=== PATIENT | female | born 1980 | race Caucasian/White ===

== ENCOUNTER 2017-11-04 08:48 | Emergency (ER) | payer MEDICAID ==
[2014-07-19 16:05] VITALS: Ht 162.6 cm; Wt 107.5 kg
[~2017-11-04] VITALS: Ht 162.6 cm; Wt 107.5 kg
[~2017-11-04 08:48] MED LIST: ACET-1718 PO; ALBU8.5H12 IH; AMOX500T10 PO; ARIP20TA11 PO; ATOM100C2 PO; BACDS PO; CALC-475 PO; CEF300 PO; CETI-169; CITA-157 PO; CYC10 PO; CYCL-277 PO; CYCL-332 PO; DIA5 PO; ESC10 PO; GABA-549 PO; HYDR-3074 PO; HYDR-3078 PO; HYDR-4225 PO; IBU600 PO; IBU800 PO; IBUP800T37 PO; KET10 PO; LAMO100T56 PO; LIDO5CRE10 TP; LISD30PT PO; LISD40PT PO; LOR5 PO; LOR5/325 PO; MECL-111 PO; MELO7.5O3 PO; METH-543 PO; METH4TAB66 PO; OXYC-373 PO; OXYC-865 PO; OXYC-870 PO; PER PO; PIRO-91 PO; PRE10 PO; PRED20TA6 PO; PRO25 PO; TIZA2CAP3 PO; TIZA4CAP3 PO; TRA50 PO; TRAM-420 PO; U
--- NOTE | 2017-11-04 08:51 | ER Report ---
History and Physical Time Seen By MD: 08:50 HPI/ROS CC: Posterior chest wall pain HPI: 37-year-old female with a past medical history of chronic back pain, medication refill, amphetamine abuse, radicular low back pain, cervical paraspinal muscle spasms. Patient states that yesterday she felt a pop in her posterior right thoracic area. Since that time she's had continued pain with inspiration showed stabbing in nature that she is rating as an 8-9 out of 10. Reproducible with deep breathing. Better with rest. She states that it takes her breath away. She continues to smoke over a pack of cigarettes a day. She's been battling a sinus infection for a week. She denies any chest pressure, nausea vomiting, diaphoresis or shortness of breath, palpitations abdominal pain. ROS: 12 point review of systems essentially negative other than what's mentioned in history of present illness. NURSES AND OLD MEDICAL RECORDS: Reviewed PMH: Reviewed SURGICAL HX: Reviewed FAMILY HX: Noncontributory SOCIAL HX: Patient continues to smoke a pack of cigarettes a day. History of illegal drug use. VITAL SIGNS: Reviewed CONSTITUTIONAL: 37-year-old female in moderate distress. PHYSICAL EXAM: HEENT: Pupils equal round reactive to light and accommodate, EOMI, tympanic membranes pearly white umbo present with good light reflex. Lips dry mucous membranes moist gums nonbleeding uvula midline and rises equally with phonation, oropharynx noninjected, teeth intact. NECK: Neck supple, thyroid not appreciated, anterior and posterior cervical lymphadenopathy not appreciated. Trachea midline and rises equally with phonation. CARDIAC: S1-S2 regular rate rhythm no murmurs rubs or gallops. LUNGS: Lungs clear bilaterally posteriorly in all lechuga. Good air movement. ABDOMEN: Abdomen soft, nondistended, bowel sounds active in all 4 quadrants, no bruits noted, no CVA tenderness. MUSCULOSKELETAL: Strength 5 out of 5 x 4 extremities, no deformities noted. NEUROLOGIC: Patient alert and oriented by 3 Allergies: Coded Allergies: No Known Drug Allergies (Verified , 11/04/17) Home Meds Reported Medications Lamotrigine (LAMICTAL) 100 Mg Tablet, 100 MG PO HS 03/26/17 Gabapentin (GABAPENTIN) 300 Mg Capsule, 800 MG PO QID for PAIN, CAPSULE 10/01/15 Atomoxetine Hcl (STRATTERA) 100 Mg Capsule, 100 MG PO QDAY, #10 CAP 10/01/15 Hydroxyzine Hcl (HYDROXYZINE HCL) 25 Mg Tablet, 50 MG PO BID 05/20/15 Citalopram Hydrobromide (CELEXA) 40 Mg Tablet, 40 MG PO QDAY, #5 TAB 05/20/15 Albuterol Sulfate (Albuterol Sulfate Hfa) 8.5 Gm Hfa.aer.ad, 8.5 GM IH PRN, 0 Refills 03/26/11 Discontinued Reported Medications Cetirizine Hcl (CETIRIZINE HCL) 10 Mg Tablet 08/18/17 Meloxicam (MELOXICAM) 7.5 Mg/5 Ml Oral.susp, 7.5 MG PO BID 02/15/16 Discontinued Scripts Diazepam (VALIUM) 5 Mg Tablet, 5 MG PO 2-3XD, #15 TAB Prov:ELIZABETH MCKEON MD 08/22/17 Oxycodone Hcl/Acetaminophen (PERCOCET 5-325 MG TABLET) 1 Each Tablet, 1 EACH PO Q4-6H Y for PAIN, #12 Prov:RICARDO GOODEN DO 08/18/17 Methocarbamol (ROBAXIN-750) 750 Mg Tablet, 1 MG PO TID Y for muscle spasm relief , #15 Prov:RICARDO GOODEN DO 08/18/17 Hx Smoking: Yes (2 PPD) Smoking Status: Current: Every Day Smoker Exposure to Second Hand Smoke?: No Hx Substance Use Disorder: Yes (METH, COCAINE QUIT DEC 30, 2016) Hx Alcohol Use: Yes (ETOH LAST DRINK OCT 2016) Constitutional Vital Sign - Last 24 Hours 11/04/17 11/04/17 11/04/17 11/04/17 08:52 09:00 09:00 09:09 Temp 98.1 Pulse 94 77 78 Resp B/P (MAP) 125/72 Pulse Ox 96 92 O2 Delivery Room Air Room Air Medical Decision Making Data Points Result Diagram: 11/04/1792011/04/17920 Laboratory Hematology Test 11/04/17 08:52 11/04/17 09:14 11/04/17 09:21 Urine Opiates Screen Negative Urine Barbiturates Screen Negative Ur Tricyclic Antidepressants Screen Negative Urine Phencyclidine Screen Negative Urine Amphetamines Screen Negative Urine Benzodiazepines Screen Negative Urine Cocaine Screen Negative Urine Cannabinoids Screen Negative Urine Color Straw Urine Clarity Clear Urine pH 7.0 pH (4.8-9.5) Urine Specific Diana 1.005 Urine Protein Negative mg/dL (NEGATIVE) Urine Glucose (UA) Negative mg/dL (NEGATIVE) Urine Ketones Negative mg/dL (NEGATIVE) Urine Blood Negative (NEGATIVE) Urine Nitrite Negative (NEGATIVE) Urine Bilirubin Negative (NEGATIVE) Urine Urobilinogen Negative mg/dL (0.2-1.9) Urine Leukocyte Esterase Negative (NEGATIVE) Urine RBC None /HPF (0-2/HPF) Urine WBC <1 /HPF (0-5/HPF) Urine Squamous Epithelial Cells Many /LPF (</=FEW) Urine Bacteria Few /HPF (NONE-FEW) Urine Mucus None /HPF (NONE-FEW) Red Blood Count 4.99 M/uL (4.17-5.56) Mean Corpuscular Volume 87.4 fL (80.0-96.0) Mean Corpuscular Hemoglobin 29.4 pg (26.0-33.0) Mean Corpuscular Hemoglobin Concent 33.6 g/dL (32.0-36.0) Red Cell Distribution Width 13.7 % (11.5-14.5) Mean Platelet Volume 8.4 fL (7.2-11.1) Neutrophils (%) (Auto) 54.9 % (39.4-72.5) Lymphocytes (%) (Auto) 34.5 % (17.6-49.6) Monocytes (%) (Auto) 6.5 % (4.1-12.4) Eosinophils (%) (Auto) 3.1 % (0.4-6.7) Basophils (%) (Auto) 1.0 % (0.3-1.4) Nucleated RBC Relative Count (auto) 0.0 /100WBC Neutrophils # (Auto) 4.2 K/uL (2.0-7.4) Lymphocytes # (Auto) 2.6 K/uL (1.3-3.6) Monocytes # (Auto) 0.5 K/uL (0.3-1.0) Eosinophils # (Auto) 0.2 K/uL (0.0-0.5) Basophils # (Auto) 0.1 K/uL (0.0-0.1) Nucleated RBC Absolute Count (auto) 0.00 K/uL Sodium Level 137 mmol/L (137-145) Potassium Level 4.3 mmol/L (3.5-5.0) Chloride Level 105 mmol/L (98-107) Carbon Dioxide Level 24 mmol/L (22-31) Blood Urea Nitrogen 10 mg/dl (7-18) Creatinine 0.80 mg/dl (0.52-1.04) Glomerular Filtration Rate Calc > 60.0 Random Glucose 86 mg/dl (75-110) Calcium Level 8.8 mg/dl (8.4-10.2) Total Bilirubin 0.5 mg/dl (0.2-1.3) Aspartate Amino Transf (AST/SGOT) 22 U/L (0-35) Alanine Aminotransferase (ALT/SGPT) 28 U/L (0-56) Alkaline Phosphatase 115 U/L (0-126) Total Protein 6.5 gm/dl (6.3-8.2) Albumin 3.5 g/dl (3.5-5.0) Human Chorionic Gonadotropin, Qual Negative (NEGATIVE) Chemistry Test 11/04/17 08:52 11/04/17 09:14 11/04/17 09:21 Urine Opiates Screen Negative Urine Barbiturates Screen Negative Ur Tricyclic Antidepressants Screen Negative Urine Phencyclidine Screen Negative Urine Amphetamines Screen Negative Urine Benzodiazepines Screen Negative Urine Cocaine Screen Negative Urine Cannabinoids Screen Negative Urine Color Straw Urine Clarity Clear Urine pH 7.0 pH (4.8-9.5) Urine Specific Diana 1.005 Urine Protein Negative mg/dL (NEGATIVE) Urine Glucose (UA) Negative mg/dL (NEGATIVE) Urine Ketones Negative mg/dL (NEGATIVE) Urine Blood Negative (NEGATIVE) Urine Nitrite Negative (NEGATIVE) Urine Bilirubin Negative (NEGATIVE) Urine Urobilinogen Negative mg/dL (0.2-1.9) Urine Leukocyte Esterase Negative (NEGATIVE) Urine RBC None /HPF (0-2/HPF) Urine WBC <1 /HPF (0-5/HPF) Urine Squamous Epithelial Cells Many /LPF (</=FEW) Urine Bacteria Few /HPF (NONE-FEW) Urine Mucus None /HPF (NONE-FEW) White Blood Count 7.6 k/uL (4.5-11.0) Red Blood Count 4.99 M/uL (4.17-5.56) Hemoglobin 14.7 g/dL (12.0-16.0) Hematocrit 43.6 % (34.0-47.0) Mean Corpuscular Volume 87.4 fL (80.0-96.0) Mean Corpuscular Hemoglobin 29.4 pg (26.0-33.0) Mean Corpuscular Hemoglobin Concent 33.6 g/dL (32.0-36.0) Red Cell Distribution Width 13.7 % (11.5-14.5) Platelet Count 223 K/uL (150-450) Mean Platelet Volume 8.4 fL (7.2-11.1) Neutrophils (%) (Auto) 54.9 % (39.4-72.5) Lymphocytes (%) (Auto) 34.5 % (17.6-49.6) Monocytes (%) (Auto) 6.5 % (4.1-12.4) Eosinophils (%) (Auto) 3.1 % (0.4-6.7) Basophils (%) (Auto) 1.0 % (0.3-1.4) Nucleated RBC Relative Count (auto) 0.0 /100WBC Neutrophils # (Auto) 4.2 K/uL (2.0-7.4) Lymphocytes # (Auto) 2.6 K/uL (1.3-3.6) Monocytes # (Auto) 0.5 K/uL (0.3-1.0) Eosinophils # (Auto) 0.2 K/uL (0.0-0.5) Basophils # (Auto) 0.1 K/uL (0.0-0.1) Nucleated RBC Absolute Count (auto) 0.00 K/uL Glomerular Filtration Rate Calc > 60.0 Calcium Level 8.8 mg/dl (8.4-10.2) Total Bilirubin 0.5 mg/dl (0.2-1.3) Aspartate Amino Transf (AST/SGOT) 22 U/L (0-35) Alanine Aminotransferase (ALT/SGPT) 28 U/L (0-56) Alkaline Phosphatase 115 U/L (0-126) Total Protein 6.5 gm/dl (6.3-8.2) Albumin 3.5 g/dl (3.5-5.0) Human Chorionic Gonadotropin, Qual Negative (NEGATIVE) Toxicology Test 11/04/17 08:52 Urine Opiates Screen Negative Urine Barbiturates Screen Negative Ur Tricyclic Antidepressants Screen Negative Urine Phencyclidine Screen Negative Urine Amphetamines Screen Negative Urine Benzodiazepines Screen Negative Urine Cocaine Screen Negative Urine Cannabinoids Screen Negative Urinalysis Test 11/04/17 09:14 Urine Color Straw Urine Clarity Clear Urine pH 7.0 pH (4.8-9.5) Urine Specific Diana 1.005 Urine Protein Negative mg/dL (NEGATIVE) Urine Glucose (UA) Negative mg/dL (NEGATIVE) Urine Ketones Negative mg/dL (NEGATIVE) Urine Blood Negative (NEGATIVE) Urine Nitrite Negative (NEGATIVE) Urine Bilirubin Negative (NEGATIVE) Urine Urobilinogen Negative mg/dL (0.2-1.9) Urine Leukocyte Esterase Negative (NEGATIVE) Urine RBC None /HPF (0-2/HPF) Urine WBC <1 /HPF (0-5/HPF) Urine Squamous Epithelial Cells Many /LPF (</=FEW) Urine Bacteria Few /HPF (NONE-FEW) Urine Mucus None /HPF (NONE-FEW) EKG/Imaging Imaging Rib x-ray: IMPRESSION: 1. No radiographic evidence of acute right rib fracture Chest x-ray: IMPRESSION: 1. No acute cardiac pulmonary process is seen ED Course/Re-evaluation ED Course All labs and x-rays are within normal limits. This is most likely chest wall pain. Ibuprofen for pain control. Patient will plan and in agreement. Re-evaluation Medical decision making includes but not excluded to displaced rib, rib fracture , costochondritis, chest wall pain. Decision to Disposition Date: Nov 04, 2017 Decision to Disposition Time: 10:35 Depart Departure Latest Vital Signs Vital Signs Date Time Temp Pulse Resp B/P (MAP) Pulse Ox O2 Delivery O2 Flow Rate FiO2 11/04/17 09:09 78 18 11/04/17 09:00 92 Room Air 11/04/17 08:52 98.1 125/72 Impression: Primary Impression: Chest wall pain Condition: Condition Unchanged Disposition: HOME OR SELF-CARE New Scripts Naproxen Sodium (ALEVE) 220 Mg Capsule 220 MG PO TID Y for PAIN, #60 CAPSULE Prov: LOUISE PASTOR MD 11/04/17 Patient Instructions: Chest Wall Pain (ED) Additional Instructions: You have chest wall pain. Take naproxen as directed. Your x-rays did not show broken rib. You do not have any infiltrates or pneumonia per chest x-ray. Follow -up with your regular physician. I and the staff wanted to thank you for allowing us to take care of your needs today in the emergency department at [facility]. We have tried to answer all of your questions and concerns. Please feel free to return to the emergency department for any further concerns or unanswered questions. LOUISE PASTOR MD Nov 04, 2017 08:51
[2017-11-04] MEDS ORDERED: DEXAMETHASONE 4 MG TAB PO ONE (08:55)
[2017-11-04] MEDS ORDERED: ALBUTEROL/IPRATROPIUM 3 ML NEB NEB ONE (08:55)
[2017-11-04 09:33] LABS: PLATELET COUNT, AUTOMATED 223 K/uL (150-450)
--- NOTE | 2017-11-04 10:01 | RADIOLOGY IMAGING REPORT ---
FACILITY: [facility] - [place] PATIENT NAME: Helen Albarran : 1980 MR: [id number] V: [id number] EXAM DATE: ORDERING PHYSICIAN: LOUISE PASTOR TECHNOLOGIST: [place] [facility] [place] Al[place] : 1980 Visit/Account:[id number] Date of Sevice: 11/04/2017 Exam type: CHEST PA AND LAT History: right posterior pain t 5-7 Comparison: February 03, 2011 Findings: The lungs are free of acute effusions infiltrates or edema. There is no evidence of a pneumothorax o r pneumomediastinum. Cardiac silhouette is normal in size. There is a wavy contour to the upper rib s bilaterally likely related to old fractures.. IMPRESSION: 1. No acute cardiac pulmonary process is seen Report Dictated By: Antonina Armenta MD at 11/04/2017 9:52 AM Report E-Signed By: Antonina Armenta MD at 11/04/2017 9:55 AM WSN:[email or web address]
--- NOTE | 2017-11-04 10:15 | RADIOLOGY IMAGING REPORT ---
FACILITY: [facility] PATIENT NAME: Helen Albarran : 1980 MR: [id number] V: [id number] EXAM DATE: ORDERING PHYSICIAN: LOUISE PASTOR TECHNOLOGIST: Location: [facility] [place] Patient: Helen Albarran : 1980 Visit/Account:[id number] Date of Sevice: 11/04/2017 Exam type: RIBS RIGHT History: right posterior pain t 5-7 Comparison: PA and lateral chest February 03, 2011. Findings: Two views of the right ribs reveals no evidence of acute right rib fracture. No evidence of a pneumo thorax or pleural effusion. IMPRESSION: 1. No radiographic evidence of acute right rib fracture Report Dictated By: Antonina Armenta MD at 11/04/2017 9:55 AM Report E-Signed By: Antonina Armenta MD at 11/04/2017 10:11 AM WSN:[email or web address]
[2017-11-04] MEDS ORDERED: NAPR220C12 PO (10:37)
[2017-11-04 10:41] VITALS: BP 106/74
== END 2017-11-04 10:41 | disposition home or self-care (01) ==
LOC: ER 08:48
DX: R07.89 Other chest pain (principal)
CPT/HCPCS: 36415; 71046; 71100; 80305; 81001; 84703; 85025; 94640; 99283; J7620; J8540; 82040; 82247; 82310; 82374; 82435; 82565; 82947; 84075; 84132; 84155; 84295; 84450; 84460; 84520

== ENCOUNTER → 2017-12-28 | Outpatient (CLI) | payer MEDICAID ==
[2014-07-19 16:05] VITALS: BMI 41.1
[~2017-12-28] MED LIST changes: +NAPR220C12 PO
--- NOTE | 2017-12-28 10:25 | EKG ---
FACILITY: [facility] PATIENT NAME: CECE MCDANIELS : [id number] MR: [id number] V: [id number] EXAM DATE: ORDERING PHYSICIAN: KEL CERVANTES TECHNOLOGIST: RONNI Quiroz Reason : PREOP-SPINE Blood Pressure : / mmHG Vent. Rate : 078 BPM Atrial Rate : 078 BPM P-R Int : 152 ms QRS Dur : 082 ms QT Int : 428 ms P-R-T Axes : 070 044 060 degrees QTc Int : 487 ms Sinus rhythm Probable left atrial enlargement Prolonged QT Abnormal ECG Confirmed by DAISY MAGANA ([id number]) on 12/28/2017 7:33:54 PM Referred By: BILLY Confirmed By:DAISY MAGANA
== END ==
LOC: RESP 10:03
PROVIDERS: ATTEND Orthopaedic Surgery
DX: Z01.812 Encounter for preprocedural laboratory examination (principal); Z01.810 Encounter for preprocedural cardiovascular examination; M50.222 Other cervical disc displacement at C5-C6 level; J45.909 Unspecified asthma, uncomplicated; F32.9 Major depressive disorder, single episode, unspecified; F17.210 Nicotine dependence, cigarettes, uncomplicated; F41.9 Anxiety disorder, unspecified; F90.9 Attention-deficit hyperactivity disorder, unspecified type; F43.10 Post-traumatic stress disorder, unspecified; R94.31 Abnormal electrocardiogram [ECG] [EKG]
CPT/HCPCS: 36415; 82040; 82247; 82310; 82374; 82435; 82565; 82947; 84075; 84132; 84155; 84295; 84450; 84460; 84520; 93005

== ENCOUNTER → 2018-01-24 | Outpatient (CLI) | payer MEDICAID ==
[2014-07-19 16:05] VITALS: BMI 41.1
[~2018-01-24] MED LIST changes: +VENL75CA58 PO
== END ==
LOC: LAB 17:07
PROVIDERS: ATTEND Physician Assistant
DX: Z01.812 Encounter for preprocedural laboratory examination (principal); Z01.810 Encounter for preprocedural cardiovascular examination; M50.222 Other cervical disc displacement at C5-C6 level; J45.909 Unspecified asthma, uncomplicated; F17.210 Nicotine dependence, cigarettes, uncomplicated; F32.9 Major depressive disorder, single episode, unspecified; F41.9 Anxiety disorder, unspecified; F90.9 Attention-deficit hyperactivity disorder, unspecified type; F43.10 Post-traumatic stress disorder, unspecified
CPT/HCPCS: 36415; 82040; 82247; 82310; 82374; 82435; 82565; 82947; 84075; 84132; 84155; 84295; 84450; 84460; 84520

== ENCOUNTER 2018-01-25 02:01 | Observation (INO) | payer MEDICAID, OTHER ==
[2014-07-19 16:05] VITALS: Ht 167.6 cm; Wt 110.7 kg
[2018-01-25] VITALS (13 sets, daily range): BP systolic 92–143; BP diastolic 57–102
[~2018-01-25] VITALS: Ht 167.6 cm; Wt 110.7 kg
[2018-01-25] MEDS ORDERED: LIDOCAINE/SOD BICARB 8.4% SYR ID ONE (06:00)
[2018-01-25] MEDS ORDERED: FAMOTIDINE 20 MG TAB PO ONE (06:00)
[2018-01-25] MEDS ORDERED: MIDAZOLAM 2 MG/2 ML VIAL IVP PRN (06:00)
[2018-01-25] MEDS ORDERED: NORMOSOL R SOLN(*) 1000 ML BAG 1,000 ML IV PRN (06:00)
[2018-01-25] MEDS ORDERED: ceFAZolin(*) 2GM/D5W 50ML 50 ML IVPB ONE (06:00)
[2018-01-25] MEDS ORDERED: THROMBIN (BOVINE) 20,000 UNIT VIAL ONE (06:34)
[2018-01-25] MEDS ORDERED: fentaNYL CITR 250 MCG/5 ML AMP ONE ×2 (06:44→07:12)
[2018-01-25] MEDS ORDERED: PROPOFOL EMUL(*) 10MG/ML 20 ML 80 ML ONE (06:49)
[2018-01-25] MEDS ORDERED: LIDOCAINE 2% IV 100 MG/5ML SYR ONE (06:54)
[2018-01-25] MEDS ORDERED: SUCCINYLCHOL CHL 200MG/10ML VL ONE (07:00)
[2018-01-25] MEDS ORDERED: DEXAMETHASONE SOD PHOS 10MG/ML ONE (07:23)
[2018-01-25] MEDS ORDERED: ONDANSETRON 4 MG/2 ML VIAL ONE (07:23)
[2018-01-25] MEDS ORDERED: PROPOFOL EMUL(*) 10MG/ML 20 ML 60 ML ONE ×2 (07:28→07:57)
[2018-01-25] MEDS ORDERED: MAGNESIUM HYDROXIDE* 30ML UDCP PO PRN (09:15)
[2018-01-25] MEDS ORDERED: ACETAMINOPHEN 500 MG TAB PO PRN (09:15)
[2018-01-25] MEDS ORDERED: ACETAMINOPHEN(*)1000 MG/100 ML 100 ML IVPB PRN (09:15)
[2018-01-25] MEDS ORDERED: ONDANSETRON 4 MG/2 ML VIAL IVP PRN (09:15)
[2018-01-25] MEDS ORDERED: BENZOCAINE/MENTHOL 1 EACH LOZG PO PRN (09:15)
[2018-01-25] MEDS ORDERED: HYDROmorphone HCL 2 MG/ML SDV IVP PRN (09:15)
[2018-01-25] MEDS ORDERED: BISACODYL 10 MG SUPP PR PRN (09:15)
[2018-01-25] MEDS ORDERED: LR(*) 1000 ML BAG 1,000 ML IV PRN (09:15)
[2018-01-25] MEDS ORDERED: FLUSH 10 ML SYR IVP PRN (09:15)
[2018-01-25] MEDS ORDERED: DIAZEPAM 5 MG TAB PO PRN (09:15)
[2018-01-25] MEDS ORDERED: diphenhydrAMINE 25 MG CAP PO PRN (09:15)
[2018-01-25] MEDS ORDERED: fentaNYL CITR 100 MCG/2 ML AMP ONE (09:39)
--- NOTE | 2018-01-25 09:50 | OPERATIVE REPORT 1 ---
EVENT DATE: January 25, 2018 SURGEON: Severino Lundy MD ANESTHESIOLOGIST: Cabrera Conway MD ANESTHESIA: General endotracheal EMS EDUCATOR: Prabhakar Ortiz PA-C PREOPERATIVE DIAGNOSIS Left C6 radiculopathy with C5-C6 herniated nucleus pulposus. POSTOPERATIVE DIAGNOSIS Left C6 radiculopathy with C5-C6 herniated nucleus pulposus. PROCEDURE PERFORMED C5-C6 anterior cervical discectomy and fusion. IV FLUIDS 800 mL. ESTIMATED BLOOD LOSS 25 mL. IMPLANTS An 8 mm tall size medium lordotic interbody device from [employer], 3.5 mm x 14 mm fixation screws also from [employer] x 2 and a 1 mL Vi-Bone bone graft. SPECIMENS None. DRAINS A 10 Bulgarian round Harsha-Lee drain. COMPLICATIONS None. DISPOSITION Post anesthesia care unit. INDICATIONS FOR SURGERY Ms. Albarran is a 37-year-old female who presented to my clinic with a chief complaint of severe radiating left upper extremity pain, numbness and tingling. The pain went into the left periscapular region, then down the biceps, radial forearm, then to the thumb and index finger of the left hand. Physical examination revealed weakness in the left biceps as well as a decreased biceps deep tendon reflex compared to the contralateral side. Her MRI showed a very large left-sided disk herniation significantly compromising the foramen at that level. She failed physical therapy, medications and activity modifications and was ultimately offered surgical intervention in the form of C5-C6 anterior cervical discectomy and fusion. Prior to surgery, I explained in detail to the patient the possible risks of surgery. This included the risks of bleeding, infection, damage to surrounding structures, swallowing difficulties, hoarseness, damage to the superior or the recurrent laryngeal nerve root with possible need for tube feeding, persistent and/or worsening pain, nerve root damage, spinal cord injury, , blindness , sexual dysfunction, and other unforeseen medical and surgical complications. An understanding that spinal surgery is more predictive at relieving extremity discomfort than axial spine pain was stressed. Prior to surgery, we also discussed the value of neurophysiologic monitoring. I explained that neurophysiologic monitoring mitigates against neurologic damage , but is not an infallible mode to prevent this from occurring. Occasionally, the ability to monitor the nerve roots and spinal cord is lost in the absence of a correctable maneuver. In this situation, the surgeon is blinded to any adverse changes to the neurologic system. Patient has given permission to continue surgery in the event that this would occur. Throughout the procedure, there were no significant changes in neurophysiologic monitoring. DESCRIPTION OF PROCEDURE On the day of surgery, the patient was met in the preoperative hold area and all questions were answered. The operative site was identified and marked by myself. The patient was brought in good condition to the operating room, and after succumbing to anesthesia, was positioned in the supine position on a standard OR bed. The arms were tucked at the side with the elbows wrapped in gel pads to protect the ulnar nerves. All bony protuberances and soft tissues were well padded in the standard fashion. The shoulders were retracted inferiorly to afford access to the anterior cervical spine. Care was taken to maintain appropriate perfusion pressures during anesthesia. Preoperatively, antibiotics were administered according to the appropriate timing schedule. At the conclusion of the procedure, sponge and instrument counts were correct x 2. Final time out was undertaken by members of the operating team to confirm correct patient, correct levels and correct surgery. A transverse incision was made over the left side of the anterior cervical spine at the intended surgical levels. Sharp dissection was carried down to the platysma, which was divided with electrocautery. The medial border of the sternocleidomastoid muscle was identified, and the carotid sheath was identified as well. Blunt finger dissection was carried out medial to the carotid sheath and the sternocleidomastoid muscle to come down into the retropharyngeal space. Soft tissues were cleared from the anterior cervical spine, including the longus colli muscles, and the lateral radiograph was taken to confirm correct levels. A self retaining retractor was then placed, and the microscope was brought into the field. A 15 blade was used to incise the outer annulus of the C5-C6 disk. This was removed using pituitary rongeur. Progressively smaller curettes were used to perform a discectomy at the C5-C6 level. Once we began to approach the posterior aspect of the disk space, a Cloward linseed oil refiner was placed and distraction applied across the disk space to afford access to the posterior portion of the disk. There were no changes in neurophysiologic monitoring. Curettes were used to remove the remaining disk fragments from the posterior aspect of the disk space. A very large loose disk fragment was removed from the left side of the canal and the left C5-C6 foramen. The posterior longitudinal ligament was identified, and we dissected through its layers using small angled forward angled curette. Once this was accomplished, the posterior longitudinal ligament was taken down with a #1 and #2 mm Kerrison rongeur. A nerve hook was passed behind the vertebral bodies to ensure complete decompression of the spinal cord, and out bilateral foramina, taking care especially to check the left side for any further loose disk fragments. None were encountered, and bilateral foraminotomies were performed to ensure complete decompression of both nerve roots. First a #7 and then a #8 rasp of the same footprint as the intended implant was placed in the inner space. The 8 mm lordotic rasp was found to fit the best. The end plates were completely stripped of all cartilaginous remnants, ensuring bleeding bone across both surfaces. The 8 mm size medium lordotic interbody device was chosen and packed with Vi-Bone. This was then placed in the interspace, and countersunk about a half a millimeter. The awl was then used to puncture the end plates through the holes in the implant, and 3.5 mm x 14 mm screws were then placed, one into the C5 vertebral body and one into the C6 vertebral body. There were no changes in neurophysiologic monitoring, and a final motor was run again with no changes in neurophysiologic monitoring. Meticulous hemostasis was obtained, and the wound was then closed in layers, using interrupted sutures for the platysma, inverted interrupted sutures for the subcutaneous tissue and then a running subcuticular skin stitch. A lateral radiograph confirmed appropriate positioning of the interbody implant. A 10 Bulgarian round Harsha-Lee drain was left deep to the platysma. Sponge and needle counts were correct x 2. POSTOPERATIVE CARE PLAN The patient will remain in hospital overnight. She will mobilize today and in the morning, and will be discharged home postop day 1. She will follow up in my clinic in two weeks' time for wound check and examination. YONI
[2018-01-25] MEDS ORDERED: ALBUTEROL SULFATE 90 MCG/ACT 8.5 GM HNH INH PRN (11:50)
--- NOTE | 2018-01-25 12:02 | Hospitalist Consultation ---
History of Present Illness Requesting Physician Dr. Lundy Reason for Consult Medication Management Chief Complaint s/p cervical spine surgery History of Present Illness She was admitted s/p cervical spine surgery. It is reported the surgery had no known complications. History Problems: (1) ADHD Status: Chronic (2) Asthma Status: Chronic (3) Depression Status: Chronic (4) Chronic radicular pain of lower back Status: Chronic Home Meds Reported Medications Venlafaxine Hcl (EFFEXOR XR) 75 Mg Cap.er.24h, 75 MG PO QDAY 01/18/18 Lamotrigine (LAMICTAL) 100 Mg Tablet, 100 MG PO HS 03/26/17 Gabapentin (GABAPENTIN) 300 Mg Capsule, 800 MG PO QID for PAIN, CAPSULE 10/01/15 Atomoxetine Hcl (STRATTERA) 100 Mg Capsule, 100 MG PO QDAY, #10 CAP 10/01/15 Hydroxyzine Hcl (HYDROXYZINE HCL) 25 Mg Tablet, 50 MG PO BID 05/20/15 Albuterol Sulfate (Albuterol Sulfate Hfa) 8.5 Gm Hfa.aer.ad, 8.5 GM IH PRN, 0 Refills 03/26/11 Discontinued Reported Medications Citalopram Hydrobromide (CELEXA) 40 Mg Tablet, 40 MG PO QDAY, #5 TAB 05/20/15 Discontinued Scripts Naproxen Sodium (ALEVE) 220 Mg Capsule, 220 MG PO TID Y for PAIN, #60 CAPSULE Prov:LOUISE PASTOR MD 11/04/17 Allergies: Coded Allergies: No Known Drug Allergies (Verified , 11/04/17) Patient History: FH: HTN (hypertension) FATHER MOTHER FH: NE (myocardial infarction) FATHER FH: type 2 diabetes MOTHER Hx Smoking: Yes (5-6 CIGS DAILY) Smoking Status: Never Smoker, Current: Every Day Smoker Exposure to Second Hand Smoke?: No Hx Alcohol Use: Yes (ETOH LAST DRINK OCT 2013) Hx Substance Use Disorder: Yes (METH, COCAINE QUIT DEC 30, 2016) Amount Of Social Drug/s Used: UNSURE HOW MUCH History of IV Drug Use: No Review of Systems All Systems Reviewed/Normal: Yes, Except as Noted Exam Vital Signs Vital Signs Date Time Temp Pulse Resp B/P (MAP) Pulse Ox O2 Delivery O2 Flow Rate FiO2 01/25/18 11:00 89 129/92 (104) 92 01/25/18 10:07 Nasal Cannula 3.0 01/25/18 09:59 98.1 20 General Appearance: Alert, Awake, No Acute Distress, Afebrile Cardiovascular: Regular Rate and Rhythm Respiratory: No Respiratory Distress, Clear to Auscultation Psych: Alert & Oriented X3, Appropriate Mood & Affect Assessment and Plan Problems: (1) S/P cervical spinal fusion Status: Acute Assessment & Plan: No complications were reported from surgery. She has no history of DVT or PE. (2) ADHD Status: Chronic Assessment & Plan: She is on chronic treatment with Strattera. (3) Asthma Status: Chronic Assessment & Plan: She is on chronic treatment with Albuterol. (4) Depression Status: Chronic Assessment & Plan: She is on chronic treatment with Effexor, Lamictal, and Hydroxyzine. (5) Chronic radicular pain of lower back Status: Chronic Assessment & Plan: She is on chronic treatment with Gabapentin. Venous Thromboembolism Antithrombotics Is Pt On Any Antithrombotics?: No Prophylaxis Tx Contraindicated Pharmacological Contraindicati: Surgical Contraindication Exam Sepsis Risk: No Definite Risk ERIC POLLARDP Jan 25, 2018 12:02
[2018-01-25] MEDS: APAP/HYDROCODONE 325/5 TAB PO PRN ×2 (12:37→19:31)
[2018-01-25] MEDS: GABAPENTIN(*) 300 MG CAP 600 MG, GABAPENTIN(*) 100 MG CAP 200 MG PO SCH ×3 (12:38→20:32)
[2018-01-25] MEDS ORDERED: GABAPENTIN 300 MG CAP PO SCH (13:00)
--- NOTE | 2018-01-25 13:12 | RADIOLOGY IMAGING REPORT ---
[place] [facility] [place] NAME: Helen Albarran : 1980 MR: [id number] V: [id number] EXAM DATE: ORDERING PHYSICIAN: KEL CERVANTES TECHNOLOGIST: Location: [facility] - [place] Patient: Helen Albarran : 1980 Visit/Account:[id number] Date of Sevice: 01/25/2018 CERVICAL SPINE 1 VIEW Provided history: ANTERIOR C5-6 DISCECTOMY, C5-6 FUSION Additional pertinent history: none COMPARISON STUDIES: Preoperative cervical spine 08/22/17 FINDINGS: Crosstable lateral images of the cervical spine demonstrate anterior probe at the C4-5 level follow ed by placement of a prosthetic disc at the C5-6 level in expected position alignment. IMPRESSION: C5-6 discectomy and prosthetic disc placement in normal alignment. Report Dictated By: Trip Osuna MD at 01/25/2018 11:32 AM Report E-Signed By: Trip Osuna MD at 01/25/2018 1:08 PM WSN:[id number]
[2018-01-25] MEDS: ceFAZolin(*) 2GM/D5W 50ML 50 ML IVPB SCH ×2 (13:25→22:43)
[2018-01-25] MEDS: oxyCODONE HCL 5 MG CAP PO PRN (17:56)
[2018-01-25] MEDS: DOCUSATE SODIUM 100 MG CAP PO SCH (20:32)
[2018-01-25] MEDS: hydrOXYzine 25 MG TAB PO SCH (20:32)
[2018-01-25] MEDS ORDERED: lamoTRIgine 100 MG TAB PO SCH (21:00)
[2018-01-26] MEDS: APAP/HYDROCODONE 325/5 TAB PO PRN ×2 (01:06→06:05)
[2018-01-26] MEDS: oxyCODONE HCL 5 MG CAP PO PRN ×2 (03:46→09:01)
[2018-01-26 04:08] VITALS: BP 122/75
[2018-01-26] MEDS: ceFAZolin(*) 2GM/D5W 50ML 50 ML IVPB SCH (05:19)
[2018-01-26] MEDS ORDERED: OXYC-865 PO (07:12)
[2018-01-26] MEDS ORDERED: DOCU240C84 PO (07:13)
[2018-01-26 07:41] VITALS: BP 128/95
--- NOTE | 2018-01-26 07:58 | RADIOLOGY IMAGING REPORT ---
FACILITY: [facility] PATIENT NAME: Helen Albarran : 1980 MR: [id number] V: [id number] EXAM DATE: ORDERING PHYSICIAN: KEL CERVANTES TECHNOLOGIST: Location: [facility] Patient: Helen Albarran : 1980 Visit/Account:[id number] Date of Sevice: 01/26/2018 CERVICAL SPINE 2 OR 3 VIEW HISTORY: Status post cervical spine fusion. COMPARISON: 01/25/2018 and studies dating to 01/29/2008. TECHNIQUE: AP and lateral views of the cervical spine. FINDINGS: On the lateral view, C1 to the bottom of C7 are visible. There has been anterior cervical f usion at C5-6. There is straightening of the normal cervical lordosis that may be positional or due t o muscle spasm. Prevertebral soft tissues are within normal limits. IMPRESSION: 1. Changes of anterior cervical fusion at C5-6. Report Dictated By: Allison Sorensen at 01/26/2018 7:53 AM Report E-Signed By: Allison Sorensen at 01/26/2018 7:54 AM WSN:[id number]
[2018-01-26] MEDS: hydrOXYzine 25 MG TAB PO SCH (08:33)
[2018-01-26] MEDS: GABAPENTIN(*) 300 MG CAP 600 MG, GABAPENTIN(*) 100 MG CAP 200 MG PO SCH (08:33)
[2018-01-26] MEDS: DOCUSATE SODIUM 100 MG CAP PO SCH (08:33)
--- NOTE | 2018-01-26 08:48 | Hospitalist Progress Note ---
Subjective Progress Notes Subjective She has no complaints this morning. She states she is ready to go home. Patient Complains of: Cardiovascular: No: Chest Pain Respiratory: No: Shortness of Breath Physical Exam Vital Signs Date Time Temp Pulse Resp B/P (MAP) Pulse Ox O2 Delivery O2 Flow Rate FiO2 01/26/18 07:58 93 01/26/18 07:58 Room Air 01/26/18 07:41 98.4 80 12 128/95 (106) 01/26/18 04:08 0.5 Intake and Output 01/27/18 07:00 Output Total 10 ml Balance -10 ml Output Drainage Total 10 ml General Appearance: Alert, Awake, No Acute Distress, Afebrile Cardiovascular: Regular Rate and Rhythm Respiratory: No Respiratory Distress, Clear to Auscultation Psych: Alert & Oriented X3, Appropriate Mood & Affect Assessment and Plan Problems: (1) S/P cervical spinal fusion Status: Acute Assessment & Plan: No complications were reported from surgery. She has no history of DVT or PE. (2) ADHD Status: Chronic Assessment & Plan: She is on chronic treatment with Strattera. (3) Asthma Status: Chronic Assessment & Plan: She is on chronic treatment with Albuterol. (4) Depression Status: Chronic Assessment & Plan: She is on chronic treatment with Effexor, Lamictal, and Hydroxyzine. (5) Chronic radicular pain of lower back Status: Chronic Assessment & Plan: She is on chronic treatment with Gabapentin. Exam Sepsis Risk: No Definite Risk ERIC POLLARDP Jan 26, 2018 08:48
[2018-01-26] MEDS ORDERED: VENLAFAXINE XR 75 MG CAPCR PO SCH (09:00)
[2018-01-26] MEDS ORDERED: ATOMOXETINE HCL 25 MG PO SCH (09:00)
== END 2018-01-26 07:00 | disposition home or self-care (01) ==
LOC: OR 02:01 → MED 09:45
PROVIDERS: ADMIT Orthopaedic Surgery; ATTEND Orthopaedic Surgery
DX: M50.122 Cervical disc disorder at C5-C6 level with radiculopathy (principal); Z79.899 Other long term (current) drug therapy
CPT/HCPCS: 20930; 22551; 36415; 72020; 72040; 80305; 80307; 81025; 86850; 86900; 86901; 97161; C1713; G0378; J0330; J1100; J2001; J2250; J2405; J2704; J3010; J7120; J0690

== ENCOUNTER 2018-03-22 00:14 | Day surgery (SDC) | payer MEDICAID ==
[2014-07-19 16:05] VITALS: Ht 162.6 cm; Wt 111.6 kg
[~2018-03-22] VITALS: Ht 162.6 cm; Wt 111.6 kg
[~2018-03-22 00:14] MED LIST changes: +DOCU240C84 PO
[2018-03-22] MEDS ORDERED: LIDOCAINE/SOD BICARB 8.4% SYR ID ONE ×2 (06:00→13:20)
[2018-03-22] MEDS ORDERED: MIDAZOLAM 2 MG/2 ML VIAL IVP PRN ×2 (06:00→13:20)
[2018-03-22] MEDS ORDERED: ceFAZolin(*) 2GM/D5W 50ML 50 ML IVPB ONE ×2 (06:00→13:20)
[2018-03-22] MEDS ORDERED: NORMOSOL R SOLN(*) 1000 ML BAG 1,000 ML IV PRN ×2 (06:00→13:20)
[2018-03-22] MEDS ORDERED: FAMOTIDINE 20 MG TAB PO ONE ×2 (06:00→13:20)
[2018-03-22] MEDS ORDERED: MIDAZOLAM 2 MG/2 ML VIAL IVP ONE (06:00)
[2018-03-22] MEDS ORDERED: BUPIVACAIN 0.25% INJ 50ML VIAL ONE (10:45)
[2018-03-22 12:35] VITALS: BP 111/91
[2018-03-22] MEDS ORDERED: DIAZEPAM 10 MG TAB PO ONE (13:00)
[2018-03-22] MEDS ORDERED: PROPOFOL EMUL(*) 10MG/ML 20 ML 40 ML ONE (13:01)
[2018-03-22] MEDS ORDERED: ONDANSETRON 4 MG/2 ML VIAL ONE (13:01)
[2018-03-22] MEDS ORDERED: DEXAMETHASONE SOD PHOS 10MG/ML ONE (13:01)
[2018-03-22] MEDS ORDERED: ROCURONIUM BROM 10 MG/ML 10 ML ONE (13:01)
[2018-03-22] MEDS ORDERED: LIDOCAINE MPF 1% 5 ML VIAL ONE (13:01)
[2018-03-22] MEDS ORDERED: fentaNYL CITR 250 MCG/5 ML AMP ONE (14:01)
[2018-03-22] MEDS ORDERED: ePHEDrine 25 MG/5 ML DISP.SYR IVP ONE (14:30)
[2018-03-22] MEDS ORDERED: SUGAMMADEX SOD 500 MG/5 ML SDV ONE (14:46)
[2018-03-22] MEDS ORDERED: SUGAMMADEX SOD 200 MG/2 ML SDV ONE (14:46)
[2018-03-22] MEDS ORDERED: KETOROLAC 30 MG/ML VIAL ONE (15:13)
[2018-03-22] MEDS ORDERED: fentaNYL CITR 100 MCG/2 ML AMP ONE ×2 (15:13→15:58)
[2018-03-22] MEDS ORDERED: DOCU240C84 PO (15:21)
[2018-03-22] MEDS ORDERED: DIA5 PO (15:22)
[2018-03-22] MEDS ORDERED: LOR5/325 PO (15:23)
[2018-03-22] MEDS ORDERED: APAP/HYDROCODONE 325/5 TAB ONE (15:50)
[2018-03-22 16:19] VITALS: BP 106/74
[2018-03-22 16:21] VITALS: BP 103/71
--- NOTE | 2018-03-22 16:40 | RADIOLOGY IMAGING REPORT ---
FACILITY: [facility] - [place] PATIENT NAME: Helen Albarran : 1980 MR: [id number] V: [id number] EXAM DATE: ORDERING PHYSICIAN: KEL CERVANTES TECHNOLOGIST: Location: [facility] Patient: Helen Albarran : 1980 Visit/Account:[id number] Date of Sevice: 03/22/2018 LUMBAR SPINE 1 VIEW Indication: L5-S1 MICRODISCECTOMY Comparison: None. Findings: Intraoperative images from lumbar spine surgery are available. There is a surgical instrume nt identified at the level of L5. IMPRESSION: Intraoperative image lumbar spine surgery, with instrument at the level of L5. Report Dictated By: Demetrius Frey at 03/22/2018 4:36 PM Report E-Signed By: Demetrius Frey at 03/22/2018 4:37 PM WSN:[id number]
--- NOTE | 2018-03-22 17:05 | OPERATIVE REPORT 1 ---
EVENT DATE: March 22, 2018 SURGEON: Severino Lundy MD ANESTHESIOLOGIST: Corbin Nicolas MD ANESTHESIA: General endotracheal anesthesia. COMPLIANCE ANALYST: SUBHASH Pride PREOPERATIVE DIAGNOSIS Left S1 radiculopathy secondary to L5-S1 herniated nucleus pulposus. POSTOPERATIVE DIAGNOSIS Left S1 radiculopathy secondary to L5-S1 herniated nucleus pulposus. PROCEDURE PERFORMED L5-S1 microdiskectomy. INTRAVENOUS FLUIDS 1300 mL ESTIMATED BLOOD LOSS 25 mL IMPLANTS None. SPECIMENS None. DRAINS None. COMPLICATIONS None. DISPOSITION Post-anesthesia care unit. INDICATIONS FOR SURGERY Ms. Albarran is a 37-year-old female who presented to my clinic with the chief complaint of radiating left leg pain, numbness, and tingling down the posterior buttock, posterior thigh, posterior calf. She underwent physical therapy and medications as well as activity modifications with no improvement in symptoms. Her physical examination was significant for positive straight leg raising maneuver on the left, negative on the right. She had a reproduction of S1 distribution pain with that maneuver. Lower extremity strength was 5/5 in all muscle groups with the exception of the gastroc/soleus complex which was slightly weak at 4+/5. Her imaging studies showed a large left paracentral disk herniation at L5-S1 compressing the traversing S1 nerve root. Secondary to ongoing symptoms and failure of nonsurgical treatment, Ms. Albarran was offered and elected to undergo left-sided L5-S1 microdiskectomy. Prior to surgery, I explained in detail to the patient the possible risks of surgery. Patient understands that risks are increased secondary to her obesity. Risks included bleeding, infection, nerve root damage, spinal fluid leak, infection, meningitis, , blindness, sexual dysfunction, autonomic nervous system dysfunction, persistent and/or worsening pain, and other unforeseen medical and surgical complications. Patient understands that spinal surgery is more predictive at relieving extremity discomfort than axial spine pain. DESCRIPTION OF PROCEDURE On the day of surgery, the patient was met in the preoperative hold area, and all questions were answered. The operative site was identified and marked by myself. The patient was taken in good condition to the operating room, and after succumbing to anesthesia, was placed in the prone position on a Harsha table. All bony protuberances and soft tissues were well padded in the standard fashion. Care was taken to maintain appropriate perfusion pressures during anesthesia. Preoperative antibiotics were administered according to the appropriate timing schedule. At the conclusion of the procedure, sponge and needle counts were correct times two. A final timeout was undertaken by members of the operating team to confirm correct patient, correct levels, and correct surgery. An 18-gauge spinal needle was placed on the spinous process of L5. A lateral radiograph confirmed appropriate positioning. The patient was then prepped and draped in the standard sterile orthopedic fashion, and a vertical incision approximately an inch and a half long was made centered over the intended surgical level. Sharp dissection was carried out down to the posterior elements. Posterior soft tissues were elevated off the posterior elements in a subperiosteal manner on the left side at the L5-S1 level. A self-retaining retractor was placed, and microscope was brought into the field. Further soft tissue was cleared away from the interlaminar space, and the canal was then entered using a straight Romero curette to undermine the inferior insertion of the ligamentum flavum on the superior aspect of the S1 lamina. A Chicot elevator was then used to separate any dural adhesions from the surrounding bone and soft tissue. Limited bone was resected using a 3.0 Kerrison rongeur to widen out the foraminotomy and afford access to the canal. The S1 nerve root was identified and mobilized. It was retracted medially, and after sweeping and searching carefully, significant amount of extruded disk material was found at the superior aspect of the interlaminar space coming from that L5-S1 level. This was removed in fragments using the pituitary rongeur. The floor of the canal was then carefully explored using a Chicot elevator as well as a Gilliam probe, sweeping and searching for further disk fragments. All disk fragments were removed, lending significant freedom to the S1 nerve root. The foramen was checked and found to be widely patent. The wound was then irrigated with copious sterile saline solution. Meticulous hemostasis was obtained. Decadron 2 mg was infused around the nerve root, and the wound was then closed in layers using interrupted sutures in the deep fascia, inverted interrupted sutures for the superficial fascia, and then a running subcuticular skin stitch. Sponge and needle counts were correct times two. Ms. Albarran will remain in the postoperative area until she meets discharge criteria. She will be discharged home with appropriate pain medications. She will follow up in my clinic in two weeks' time for wound check and examination. YONI
== END 2018-03-22 16:15 | disposition home or self-care (01) ==
LOC: OR 00:14
PROVIDERS: ATTEND Orthopaedic Surgery
DX: M51.17 Intervertebral disc disorders with radiculopathy, lumbosacral region (principal)
CPT/HCPCS: 63030; 72020; 81025; J1100; J1885; J2001; J2405; J2704; J3010; J3490; J0690

== ENCOUNTER 2018-05-17 13:31 | Emergency (ER) | payer MEDICAID ==
[2014-07-19 16:05] VITALS: Wt 108.9 kg
[2018-05-17 13:35] VITALS: BP 108/74
[2018-05-17] MEDS ORDERED: CYCL10TA29 PO (13:42)
--- NOTE | 2018-05-17 13:42 | ER Report ---
History and Physical Time Seen By MD: 13:38 HPI/ROS CHIEF COMPLAINT: Neck stiffness HISTORY OF PRESENT ILLNESS: Patient is a 37-year-old female frequent visits to the emergency room for chronic pain complaints comes emergency Department today with complaint of neck stiffness she had a disc repair done by orthopedic surgeon and neurosurgeon I 3 months visits that she is doing nothing and felt some stiffness in her neck patient denies any falls trauma sneezing coughing any ballistic motions of the neck she has some mild tingling down the right upper extremity when her last surgery was done on the left patient denies any chest pain shortness of breath nausea vomiting or additional complaints REVIEW OF SYSTEMS: Respiratory: No cough, no dyspnea. Cardiovascular: No chest pain, no palpitations. Gastrointestinal: No vomiting, no abdominal pain. Musculoskeletal: Neck pain Remainder of the 14 system rev: Yes Allergies: Coded Allergies: No Known Drug Allergies (Verified , 03/20/18) Home Meds Reported Medications Hydrocodone Bit/Acetaminophen (HYDROCODON-ACETAMINOPHEN 5-325) 1 Each Tablet, 1- 2 EACH PO Q6H Y for pain, #49 TAB 03/22/18 Diazepam (VALIUM) 5 Mg Tablet, 5 MG PO Q8H Y for SPASMS, #25 TAB 03/22/18 Docusate Calcium (SURFAK) 240 Mg Capsule, 240 MG PO QDAY, #9 CAPSULE 03/22/18 Venlafaxine Hcl (EFFEXOR XR) 75 Mg Cap.er.24h, 75 MG PO QDAY 01/18/18 Lamotrigine (LAMICTAL) 100 Mg Tablet, 100 MG PO HS 03/26/17 Gabapentin (GABAPENTIN) 300 Mg Capsule, 800 MG PO QID for PAIN, CAPSULE 10/01/15 Atomoxetine Hcl (STRATTERA) 100 Mg Capsule, 100 MG PO QDAY, #10 CAP 10/01/15 Hydroxyzine Hcl (HYDROXYZINE HCL) 25 Mg Tablet, 50 MG PO BID 05/20/15 Albuterol Sulfate (Albuterol Sulfate Hfa) 8.5 Gm Hfa.aer.ad, 8.5 GM IH PRN, 0 Refills 03/26/11 Reviewed Nurses Notes: Yes Old Medical Records Reviewed: Yes Hx Smoking: Yes (5-6 CIGS DAILY) Smoking Status: Current: Every Day Smoker Exposure to Second Hand Smoke?: No Hx Substance Use Disorder: Yes (METH, COCAINE QUIT DEC 30, 2016) Hx Alcohol Use: Yes (ETOH LAST DRINK OCT 2013) Physical Exam General Appearance: [The patient is alert, has no immediate need for airway protection and no current signs of toxicity.] [ ] Eyes: Pupils equal and round no injection. Respiratory: Chest is non tender, lungs are clear to auscultation. Cardiac: regular rate and rhythm [ ] Gastrointestinal: Abdomen is soft and non tender, no masses, bowel sounds normal. Musculoskeletal: Neck: Neck has some mild tenderness to the palpation the musculature no midline tenderness to bony step-offs no abnormalities able to rotate 4 left and 40 right mild flexion tenderness otherwise unremarkable Extremities have full range of motion and are non tender. Skin: No rashes or lesions. [ ] DIFFERENTIAL DIAGNOSIS: After history and physical exam differential diagnosis was considered for patient has had no history of trauma she has had recent surgery she has range of motion she is in no apparent distress his see no reason for additional imaging at this time we'll refer her back to neurosurgery since her surgery was done approximately 3 months prior to presentation we'll prescribe her muscle relaxers most likely this is a secondary muscle spasm if pain persists advised her to return to ER or to follow up with her neurosurgeon Medical Decision Making ED Course/Re-evaluation ED Course ED clinical course 37-year-old female comes emergency Department today with complaint of muscle spasm and neck stiffness she has had herniated disc surgery about 3 months ago advised her to follow-up with her orthopedic surgeon to take anti-inflammatories and muscle relaxants which will be prescribed warm compresses of the muscle belly and return to ED if neurological symptoms worsen. Due to no history of trauma no I see no indication for emergent imaging at this time Decision to Disposition Date: May 17, 2018 Decision to Disposition Time: 13:41 Depart Departure Impression: Primary Impression: Cervical paraspinal muscle spasm Condition: Condition Unchanged Disposition: HOME OR SELF-CARE Referrals: KEL CERVANTES MD 5 Days New Scripts Cyclobenzaprine Hcl (CYCLOBENZAPRINE HCL) 10 Mg Tablet 10 MG PO TID, #9 TAB Prov: ELIZABETH MCKEON MD 05/17/18 Patient Instructions: Cervical Disc Herniation (DC) ELIZABETH MCKEON MD May 17, 2018 13:42
== END 2018-05-17 13:52 | disposition home or self-care (01) ==
LOC: ER 13:37
DX: M62.838 Other muscle spasm (principal)
CPT/HCPCS: 99281; L0120

== ENCOUNTER 2018-09-25 16:08 | Emergency (ER) | payer OTHER, MEDICAID ==
[2014-07-19 16:05] VITALS: Wt 107.5 kg
[~2018-09-25 16:08] MED LIST changes: +CYCL10TA29 PO
--- NOTE | 2018-09-25 16:13 | ER Report ---
History and Physical Time Seen By MD: 16:13 HPI/ROS CHIEF COMPLAINT: low back pain HISTORY OF PRESENT ILLNESS: Pt was at work today and tripped over a metal bin. Pt did not fall but twisted her back when she was attempting not to fall. Occurred at 230pm today. Pt Did not take any medication for the symptoms as of yet. Back feels tight and hurts to move. Pt has radiation down left leg to knee but that is not new from todays fall. Pt has hx of L5S1 herniated disc which she had surgery on earlier this year. Pts back pain was improved with the surgery but continues to have radiation down left leg post surgery. Pt has an appt with her back surgeon, Dr. lundy Sep 29 to further discuss her radiation. Pt is on gabapentin for the nerve issue. Pt has no problem with bowel or bladder. REVIEW OF SYSTEMS: Constitutional: No fever, no chills. Eyes: No discharge. ENT: No sore throat. Cardiovascular: No chest pain, no palpitations. Respiratory: No cough, no shortness of breath. Gastrointestinal: No abdominal pain, no vomiting. Genitourinary: No hematuria. Musculoskeletal: + back pain. Skin: No rashes. Neurological: No headache, + sharp radiation down left leg Allergies: Coded Allergies: No Known Drug Allergies (Verified , 09/25/18) Home Meds Reported Medications Venlafaxine Hcl (EFFEXOR XR) 75 Mg Cap.er.24h, 75 MG PO QDAY 01/18/18 Lamotrigine (LAMICTAL) 100 Mg Tablet, 100 MG PO HS 03/26/17 Gabapentin (GABAPENTIN) 300 Mg Capsule, 800 MG PO QID for PAIN, CAPSULE 10/01/15 Atomoxetine Hcl (STRATTERA) 100 Mg Capsule, 100 MG PO QDAY, #10 CAP 10/01/15 Hydroxyzine Hcl (HYDROXYZINE HCL) 25 Mg Tablet, 50 MG PO BID 05/20/15 Albuterol Sulfate (Albuterol Sulfate Hfa) 8.5 Gm Hfa.aer.ad, 8.5 GM IH PRN, 0 Refills 03/26/11 Past Medical/Surgical History Pmhx: herniated disc L5-S1, Asthma, ADHD, depression Pshx; microdiscectomy Reviewed Nurses Notes: Yes Hx Smoking: Yes (5-6 CIGS DAILY) Smoking Status: Current: Every Day Smoker Exposure to Second Hand Smoke?: No Hx Substance Use Disorder: Yes (METH, COCAINE QUIT DEC 30, 2016) Hx Alcohol Use: Yes (ETOH LAST DRINK OCT 2013) Constitutional Vital Sign - Last 24 Hours 09/25/18 16:13 Temp 98.9 Pulse 102 B/P (MAP) 124/84 Pulse Ox 92 Physical Exam General Appearance: The patient is alert, has no immediate need for airway protection and no signs of toxicity. Eyes: Pupils equal and round no pallor or injection, EOMI ENT: no pharyngeal erythema or exudates, Mucous membranes are moist Respiratory: There are no retractions, lungs are clear to auscultation. Cardiovascular: Regular rate and rhythm. pulses are equal and symmetrical Gastrointestinal: Abdomen is soft and non tender, no masses, bowel sounds normal, no guarding, no rigidity or rebound Neurological: Cranial nerves II-XII grossly intact, no sensory or motor loss Skin: Warm and dry, no rashes. Musculoskeletal: Neck is supple non tender, no vertebral tenderness, + para vertebral tenderness L4-S1 b/l; +pain induced with left leg raise Extremities are nontender, non swollen and have full range of motion. DIFFERENTIAL DIAGNOSIS: After history and physical exam differential diagnosis was considered for musclespasm, worsening herniated disc, sprain Medical Decision Making ED Course/Re-evaluation ED Course Pt has an appt already set up for this Tuesday with her back specialist. Pts pain regimen prior to todays twisting was gabapentin. Will add NSAID and muscle relaxant. 09/25/2018 5:18:12 pm Pt feeling some improvement of her pain. Pt feels she can go home. Pt will keep her appt with Dr. Lundy Decision to Disposition Date: Sep 25, 2018 Decision to Disposition Time: 17:18 Depart Departure Latest Vital Signs Vital Signs Date Time Temp Pulse Resp B/P (MAP) Pulse Ox O2 Delivery O2 Flow Rate FiO2 09/25/18 16:13 98.9 102 124/84 92 Impression: Primary Impression: Acute back pain with sciatica Condition: Improved Disposition: HOME OR SELF-CARE Referrals: AUSTIN STRAUSS MD (PCP) KEL LUNDY MD 5 Days New Scripts Methocarbamol (ROBAXIN-750) 750 Mg Tablet 750 MG PO Q4-6H PRN for MUSCLE SPASMS, #30 TAB Prov: RASHAAD UPTON DO 09/25/18 Patient Instructions: Lumbar Radiculopathy (ED) Additional Instructions: Follow up with Dr. Lundy on Tuesday as scheduled. Motrin (advil, ibuprofen) 600mg every 6 hours as needed for pain. robaxin one every 4-6 hours as needed for spasms and stiffness Percocet one every 4-6 hours as needed for severe pain. You can not work on percocet. You may take motrin and tylenol together. You should not take tylenol with the percocet since it already contains tylenol. Problem Qualifiers Primary Impression: Acute back pain with sciatica Laterality: left Qualified Codes: M54.42 - Lumbago with sciatica, left side RASHAAD UPTON DO Sep 25, 2018 16:13
[2018-09-25] MEDS ORDERED: METHOCARBAMOL 500 MG TAB PO ONE (16:30)
[2018-09-25] MEDS ORDERED: KETOROLAC 60 MG/2 ML VIAL IM ONE (16:30)
[2018-09-25] MEDS ORDERED: HYDROMORPHONE HCL 1 MG/ML SYRINGE IM ONE (16:30)
[2018-09-25] MEDS ORDERED: OXYC-373 PO (17:19)
[2018-09-25] MEDS ORDERED: METH-543 PO (17:19)
[2018-09-25 17:30] VITALS: BP 112/70
== END 2018-09-25 17:35 | disposition home or self-care (01) ==
LOC: ER 16:20
DX: M54.42 Lumbago with sciatica, left side (principal)
CPT/HCPCS: 96372; 99283; J1170; J1885

== ENCOUNTER 2018-11-15 17:05 | Emergency (ER) | payer MEDICAID, OTHER ==
[2014-07-19 16:05] VITALS: Wt 107.5 kg
--- NOTE | 2018-11-15 17:15 | ER Report ---
History and Physical Time Seen By MD: 17:15 Hx. of Stated Complaint: low back pain radiating down right leg HPI/ROS CHIEF COMPLAINT: Back pain with radiation down the right leg HISTORY OF PRESENT ILLNESS: 38-year-old female patient presents to emergency room with complaint of back pain that radiates down the right leg. Patient states she's had pain like this in the past. She denies having numbness or tingling. She denies having any loss of bowel bladder control. She denies having any saddle paresthesia. Patient states she is not taking any medication for this. She states that her back has worsened throughout the day. She states she was having some leg pain approximately one hour after she started. Patient has not taken any medication for this. REVIEW OF SYSTEMS: Respiratory: No cough, no dyspnea. Cardiovascular: No chest pain, no palpitations. Gastrointestinal: No vomiting, no abdominal pain. Musculoskeletal: As noted above Allergies: Coded Allergies: No Known Drug Allergies (Verified , 09/25/18) Home Meds Active Scripts Methocarbamol (ROBAXIN-750) 750 Mg Tablet, 1500 MG PO TID PRN for BACK SPASM, #30 TAB Prov:CAMILA PERDOMO FIELD ADVISOR 11/15/18 Oxycodone Hcl/Acetaminophen (PERCOCET 5-325 MG TABLET) 1 Each Tablet, 1 EACH PO Q4-6H PRN for PAIN, #8 TAB Prov:CAMILA PERDOMO FIELD ADVISOR 11/15/18 Methocarbamol (ROBAXIN-750) 750 Mg Tablet, 750 MG PO Q4-6H PRN for MUSCLE SPASMS, #30 TAB Prov:RASHAAD UPTON V DO 09/25/18 Oxycodone Hcl/Acetaminophen (OXYCODONE-ACETAMINOPHEN 5-325) 1 Each Tablet, 1 EACH PO Q4-6H PRN for PAIN, #20 TAB Prov:RASHAAD UPTON V DO 09/25/18 Reported Medications Venlafaxine Hcl (EFFEXOR XR) 75 Mg Cap.er.24h, 75 MG PO QDAY 01/18/18 Lamotrigine (LAMICTAL) 100 Mg Tablet, 100 MG PO HS 03/26/17 Gabapentin (GABAPENTIN) 300 Mg Capsule, 800 MG PO QID for PAIN, CAPSULE 10/01/15 Atomoxetine Hcl (STRATTERA) 100 Mg Capsule, 100 MG PO QDAY, #10 CAP 10/01/15 Hydroxyzine Hcl (HYDROXYZINE HCL) 25 Mg Tablet, 50 MG PO BID 05/20/15 Albuterol Sulfate (Albuterol Sulfate Hfa) 8.5 Gm Hfa.aer.ad, 8.5 GM IH PRN, 0 Refills 03/26/11 Past Medical/Surgical History Patient has a past medical history of asthma, L4-L5 fusion, back pain, bulging disc, Mnire's disease, substance abuse, alcohol abuse, ADHD, anxiety, suicide attempt. Patient has a surgical history of tonsillectomy, lumbar fusion. Reviewed Nurses Notes: Yes Hx Smoking: Yes (5-6 CIGS DAILY) Smoking Status: Current: Every Day Smoker Exposure to Second Hand Smoke?: No Hx Substance Use Disorder: Yes (METH, COCAINE QUIT DEC 30, 2016) Hx Alcohol Use: Yes (ETOH LAST DRINK OCT 2013) Constitutional Vital Sign - Last 24 Hours 11/15/18 11/15/18 17:10 18:50 Temp 98.5 Pulse 99 74 Resp 20 18 B/P (MAP) 117/91 121/85 (97) Pulse Ox 87 94 O2 Delivery Room Air Room Air Physical Exam General Appearance: The patient is alert, has no immediate need for airway protection and no current signs of toxicity. Respiratory: Chest is non tender, lungs are clear to auscultation. Cardiac: regular rate and rhythm Gastrointestinal: Abdomen is soft and non tender, no masses, bowel sounds normal. Musculoskeletal: Neck: Neck is supple and non tender. Back: Patient has tenderness to the lumbar spine, pain that radiates along the right SI joint. Extremities have full range of motion and are non tender. Skin: No rashes or lesions. DIFFERENTIAL DIAGNOSIS: After history and physical exam differential diagnosis was considered for back pain with sciatica, bulging disc, muscles tightness. Medical Decision Making Data Points Laboratory Hematology Test 11/15/18 18:30 Urine Color Yellow Urine Clarity Slightly-cloudy Urine pH 5.0 pH (4.8-9.5) Urine Specific Mcmillan 1.025 Urine Protein Negative mg/dL (NEGATIVE) Urine Glucose (UA) Negative mg/dL (NEGATIVE) Urine Ketones Negative mg/dL (NEGATIVE) Urine Blood Negative (NEGATIVE) Urine Nitrite Negative (NEGATIVE) Urine Bilirubin Negative (NEGATIVE) Urine Urobilinogen Negative mg/dL (0.2-1.9) Urine Leukocyte Esterase Negative (NEGATIVE) Urine RBC None /HPF (0-2/HPF) Urine WBC 1 /HPF (0-5/HPF) Urine Squamous Epithelial Cells Many /LPF (</=FEW) Urine Bacteria Negative /HPF (NONE-FEW) Urine Hyaline Casts Few /LPF (NONE-FEW) Urine Mucus Few /HPF (NONE-FEW) Chemistry Test 11/15/18 18:30 Urine Color Yellow Urine Clarity Slightly-cloudy Urine pH 5.0 pH (4.8-9.5) Urine Specific Mcmillan 1.025 Urine Protein Negative mg/dL (NEGATIVE) Urine Glucose (UA) Negative mg/dL (NEGATIVE) Urine Ketones Negative mg/dL (NEGATIVE) Urine Blood Negative (NEGATIVE) Urine Nitrite Negative (NEGATIVE) Urine Bilirubin Negative (NEGATIVE) Urine Urobilinogen Negative mg/dL (0.2-1.9) Urine Leukocyte Esterase Negative (NEGATIVE) Urine RBC None /HPF (0-2/HPF) Urine WBC 1 /HPF (0-5/HPF) Urine Squamous Epithelial Cells Many /LPF (</=FEW) Urine Bacteria Negative /HPF (NONE-FEW) Urine Hyaline Casts Few /LPF (NONE-FEW) Urine Mucus Few /HPF (NONE-FEW) Urinalysis Test 11/15/18 18:30 Urine Color Yellow Urine Clarity Slightly-cloudy Urine pH 5.0 pH (4.8-9.5) Urine Specific Mcmillan 1.025 Urine Protein Negative mg/dL (NEGATIVE) Urine Glucose (UA) Negative mg/dL (NEGATIVE) Urine Ketones Negative mg/dL (NEGATIVE) Urine Blood Negative (NEGATIVE) Urine Nitrite Negative (NEGATIVE) Urine Bilirubin Negative (NEGATIVE) Urine Urobilinogen Negative mg/dL (0.2-1.9) Urine Leukocyte Esterase Negative (NEGATIVE) Urine RBC None /HPF (0-2/HPF) Urine WBC 1 /HPF (0-5/HPF) Urine Squamous Epithelial Cells Many /LPF (</=FEW) Urine Bacteria Negative /HPF (NONE-FEW) Urine Hyaline Casts Few /LPF (NONE-FEW) Urine Mucus Few /HPF (NONE-FEW) EKG/Imaging Imaging L-SPINE >4 VIEWS INDICATION: Low back pain history of spinal surgeries. COMPARISON: 03/22/2018. FINDINGS: 5 views lumbar spine. There are 5 nonrib-bearing lumbar vertebral bodies. Anterior fusion of L4-5 with anterior plates and screws. No periprost hetic lucency. Disc spacers in place. No appreciable change from previous exam. There is mild anterior spondylolisthesis of L5 over S1 of approximately 5 mm which appears mildly improved from previous examination. The remaining vertebral bodies are aligned. No compression fractures, bony lesions or spondylolysis. The endplates are maintained. Pedicles well seen. The L4-S1 level continues show degenerative changes including displacement, endplate changes, osteophytes and facet arthropathy. No significant change. No other appreciable degenerative changes. Soft tissues are unremarkable. IMPRESSION: 1. No acute abnormality. 2. Stable post surgical changes to the L4-5 level without sequelae. 3. Continued mild anterior spondylolisthesis of L5 over S1 likely due to the degenerative changes. This is mildly less prominent than the previous examination. 4. Stable degenerative changes of the lower lumbar spine. Report Dictated By: Storm Akhtar at 11/15/2018 5:58 PM Report E-Signed By: Storm Akhtar at 11/15/2018 6:03 PM ED Course/Re-evaluation ED Course Patient was admitted to an exam room, history and physical were obtained. Differential diagnoses were considered. On examination patient did have some tenderness to the low back, no bruising noted. X-rays done of the lumbar spine which showed no acute findings. Urinalysis obtained which was negative. I believe the patient likely has an acute flare of her chronic back pain with sciatica. I discussed the findings with the patient. We will go ahead and discharge her home. Patient will be given a muscle relaxer as well as a limited supply of pain medication. She is follow-up with Dr. Lundy. She is to return to emergency room if condition worsens. Patient requested was given a note for work tomorrow. Patient verbalized understanding and agreement with plan. We did discuss the challenges that she has with her current job and that she is up on her feet a great deal. Decision to Disposition Date: Nov 15, 2018 Decision to Disposition Time: 18:43 Depart Departure Latest Vital Signs Vital Signs Date Time Temp Pulse Resp B/P (MAP) Pulse Ox O2 Delivery O2 Flow Rate FiO2 11/15/18 18:50 74 18 121/85 (97) 94 Room Air 11/15/18 17:10 98.5 Impression: Primary Impression: Acute back pain with sciatica Condition: Improved Disposition: HOME OR SELF-CARE Referrals: AUSTIN STRAUSS MD (PCP) New Scripts Methocarbamol (ROBAXIN-750) 750 Mg Tablet 1500 MG PO TID PRN for BACK SPASM, #30 TAB Prov: CAMILA PERDOMO 11/15/18 Oxycodone Hcl/Acetaminophen (PERCOCET 5-325 MG TABLET) 1 Each Tablet 1 EACH PO Q4-6H PRN for PAIN, #8 TAB Prov: CAMILA PERDOMO 11/15/18 Patient Instructions: Sciatica (ED) Additional Instructions: Limit activity by pain. Get plenty of rest. Follow up with your primary care provider in the next week. Follow up with Dr. Lundy to discuss your back pain. You may take Ibuprofen as needed for pain in addition to the pain medication. Problem Qualifiers Primary Impression: Acute back pain with sciatica Laterality: right Qualified Codes: M54.41 - Lumbago with sciatica, right side CAMILA PERDOMO Nov 15, 2018 17:15
--- NOTE | 2018-11-15 18:07 | RADIOLOGY IMAGING REPORT ---
FACILITY: [facility] PATIENT NAME: Helen Albarran : 1980 MR: [id number] V: [id number] EXAM DATE: ORDERING PHYSICIAN: CAMILA PERDOMO TECHNOLOGIST: Location: [facility] [place] Patient: Helen Albarran : 1980 Visit/Account:[id number] Date of Sevice: 11/15/2018 L-SPINE >4 VIEWS INDICATION: Low back pain history of spinal surgeries. COMPARISON: 03/22/2018. FINDINGS: 5 views lumbar spine. There are 5 nonrib-bearing lumbar vertebral bodies. Anterior fusion of L4-5 with anterior plates and screws. No periprosthetic lucency. Disc spacers in place. No apprec iable change from previous exam. There is mild anterior spondylolisthesis of L5 over S1 of approximat rose 5 mm which appears mildly improved from previous examination. The remaining vertebral bodies are aligned. No compression fractures, bony lesions or spondylolysis. The endplates are maintained. Pedic les well seen. The L4-S1 level continues show degenerative changes including displacement, endplate c hanges, osteophytes and facet arthropathy. No significant change. No other appreciable degenerative c hanges. Soft tissues are unremarkable. IMPRESSION: 1. No acute abnormality. 2. Stable post surgical changes to the L4-5 level without sequelae. 3. Continued mild anterior spondylolisthesis of L5 over S1 likely due to the degenerative changes. Th is is mildly less prominent than the previous examination. 4. Stable degenerative changes of the lower lumbar spine. Report Dictated By: Storm Akhtar at 11/15/2018 5:58 PM Report E-Signed By: Storm Akhtar at 11/15/2018 6:03 PM WSN:[id number]
[2018-11-15] MEDS ORDERED: OXYC-865 PO (18:41)
[2018-11-15] MEDS ORDERED: METH-543 PO (18:41)
[2018-11-15 18:50] VITALS: BP 121/85
== END 2018-11-15 18:58 | disposition home or self-care (01) ==
LOC: ER 17:15
DX: M54.41 Lumbago with sciatica, right side (principal)
CPT/HCPCS: 72120; 81001; 99283

== ENCOUNTER 2019-01-09 15:52 | Emergency (ER) | payer MEDICAID ==
[2014-07-19 16:05] VITALS: Wt 107.5 kg
[2019-01-09] MEDS ORDERED: MELO-205 PO (16:10)
--- NOTE | 2019-01-09 16:25 | ER Report ---
History and Physical Time Seen By MD: 16:25 Hx. of Stated Complaint: pain in hips and L leg into ankles. discectomy L5-S1 march 2018 (ALEXSANDRARASHAAD Treva GUNN) HPI/ROS CHIEF COMPLAINT: sciatica pain HISTORY OF PRESENT ILLNESS: PT states that she has a hx of sciatica. Pt had microdiscetomy completed by Dr. Lundy this March. Pt was doing well until about July when she started with pain radiating down her thighs L>R again. Pt went to [facility] and was placed on steroids and referred to pain management in [place]. Pt is on gabapentin and Molaxicam and was doing okay on and off. Pts pain became severe again and left side radiaing down to ankle. She was referred to [facility], for epidural which was done last week. Pt states that the epidural has not helped. Had epidurals in the past prior to her surgery and they used to help for a few weeks. Pt states she has had no bowel or bladder problems. She has spoken to her doctors who plan on outpt MRI for follow up but was sent to ed for further evaluation of the acut e pain. REVIEW OF SYSTEMS: Constitutional: No fever, no chills. Eyes: No discharge. ENT: No sore throat. Cardiovascular: No chest pain, no palpitations. Respiratory: No cough, no shortness of breath. Gastrointestinal: No abdominal pain, no vomiting. Genitourinary: No hematuria. Musculoskeletal: + back pain., + b/l hip pain, + pain down left leg Skin: No rashes. Neurological: No headache, burning pain in left leg (RIRIAMELIAMAYARASHAAD Treva GUNN) Allergies: Coded Allergies: No Known Drug Allergies (Verified , 09/25/18) Home Meds Active Scripts Methocarbamol (ROBAXIN-750) 750 Mg Tablet, 750 MG PO Q4-6H PRN for MUSCLE SPASMS, #30 TAB Prov:RASHAAD UPTON DO 01/09/19 Oxycodone Hcl/Acetaminophen (OXYCODONE-ACETAMINOPHEN 5-325) 1 Each Tablet, 1 EACH PO Q4-6H PRN for PAIN, #21 TAB Prov:RASHAAD UPTON V DO 01/09/19 Reported Medications Meloxicam (MELOXICAM) 7.5 Mg Tablet, 7.5 MG PO QDAY 01/09/19 Venlafaxine Hcl (EFFEXOR XR) 75 Mg Cap.er.24h, 75 MG PO QDAY 01/18/18 Lamotrigine (LAMICTAL) 100 Mg Tablet, 100 MG PO HS 03/26/17 Gabapentin (GABAPENTIN) 300 Mg Capsule, 800 MG PO QID for PAIN, CAPSULE 10/01/15 Atomoxetine Hcl (STRATTERA) 100 Mg Capsule, 100 MG PO QDAY, #10 CAP 10/01/15 Albuterol Sulfate (Albuterol Sulfate Hfa) 8.5 Gm Hfa.aer.ad, 8.5 GM IH PRN, 0 Refills 03/26/11 Discontinued Reported Medications Hydroxyzine Hcl (HYDROXYZINE HCL) 25 Mg Tablet, 50 MG PO BID 05/20/15 Discontinued Scripts Methocarbamol (ROBAXIN-750) 750 Mg Tablet, 1500 MG PO TID PRN for BACK SPASM, #30 TAB Prov:CAMILA PERDOMO SCREW MACHINE SET UP OPERATOR TOOL 11/15/18 Oxycodone Hcl/Acetaminophen (PERCOCET 5-325 MG TABLET) 1 Each Tablet, 1 EACH PO Q4-6H PRN for PAIN, #8 TAB Prov:CAMILA PERDOMO SCREW MACHINE SET UP OPERATOR TOOL 11/15/18 Methocarbamol (ROBAXIN-750) 750 Mg Tablet, 750 MG PO Q4-6H PRN for MUSCLE SPASMS, #30 TAB Prov:RASHAAD UPTON DO 09/25/18 Oxycodone Hcl/Acetaminophen (OXYCODONE-ACETAMINOPHEN 5-325) 1 Each Tablet, 1 EACH PO Q4-6H PRN for PAIN, #20 TAB Prov:RASHAAD UPTON DO 09/25/18 Past Medical/Surgical History Pmhx: asthma, L4-L5 fusion, back pain, bulging disc, Mnire's disease, substance abuse, alcohol abuse, ADHD, anxiety, suicide attempt. Pshx: tonsillectomy, lumbar fusion. (RASHAAD UPTON DO) Reviewed Nurses Notes: Yes Old Medical Records Reviewed: Yes (RASHAAD UPTON DO) Hx Smoking: Yes (5-6 CIGS DAILY) Smoking Status: Current: Every Day Smoker Exposure to Second Hand Smoke?: No Hx Substance Use Disorder: Yes (METH, COCAINE QUIT DEC 30, 2016) Hx Alcohol Use: Yes (ETOH LAST DRINK OCT 2013) (RASHAAD UPTON DO) Constitutional (KASARDA,MARIO C MD) Physical Exam General Appearance: The patient is alert, has no immediate need for airway protection and no signs of toxicity. Eyes: Pupils equal and round no pallor or injection, EOMI ENT: no pharyngeal erythema or exudates, Mucous membranes are moist Respiratory: There are no retractions, lungs are clear to auscultation. Cardiovascular: Regular rate and rhythm. pulses are equal and symmetrical Gastrointestinal: Abdomen is soft and non tender, no masses, bowel sounds normal, no guarding, no rigidity or rebound Neurological: Cranial nerves II-XII grossly intact, no sensory or motor loss Skin: Warm and dry, no rashes. Musculoskeletal: Neck is supple non tender, no vertebral tenderness Extremities are nontender, non swollen and have full range of motion. DIFFERENTIAL DIAGNOSIS: After history and physical exam differential diagnosis was considered for lumbar radiculopathy secondary to new herniated disc, infection secondary to epidural (less likely without fever or redness), muscle spasms (RASHAAD UPTON DO) Medical Decision Making ED Course/Re-evaluation ED Course Discussed reimaging patient however she declined due to will be done as out patient. Will medicate. Decision to Disposition Date: Jan 09, 2019 Decision to Disposition Time: 17:19 (RASHAAD UPTON DO) Depart Departure Latest Vital Signs (MARIO RIVAS MD) Impression: Primary Impression: Acute back pain with sciatica Condition: Improved Disposition: HOME OR SELF-CARE Referrals: AUSTIN STRAUSS MD (PCP) KEL LUNDY MD New Scripts Methocarbamol (ROBAXIN-750) 750 Mg Tablet 750 MG PO Q4-6H PRN for MUSCLE SPASMS, #30 TAB Prov: MAYA UPTONSA V DO 01/09/19 Oxycodone Hcl/Acetaminophen (OXYCODONE-ACETAMINOPHEN 5-325) 1 Each Tablet 1 EACH PO Q4-6H PRN for PAIN, #21 TAB Prov: MAYA UPTONSA V DO 01/09/19 Patient Instructions: Lumbar Radiculopathy (ED) Additional Instructions: Follow up with your doctors for further imaging. Percocet 1-2 every 4-6 hours as needed for acute pain. Robaxin one every 4 hours as needed for muscle spasms. Return as needed. Problem Qualifiers Primary Impression: Acute back pain with sciatica Laterality: unspecified laterality Qualified Codes: M54.40 - Lumbago with sciatica, unspecified side RASHAAD UPTON DO Jan 09, 2019 16:25 MARIO RIVAS MD Jan 09, 2019 17:38
[2019-01-09] MEDS ORDERED: KETOROLAC 60 MG/2 ML VIAL IM ONE (16:40)
[2019-01-09] MEDS ORDERED: HYDROMORPHONE HCL 1 MG/ML SYRINGE IVP ONE (16:40)
[2019-01-09] MEDS ORDERED: ORPHENADRINE CITR 100 MG TABSR PO ONE (16:40)
[2019-01-09] MEDS ORDERED: METH-543 PO (17:21)
[2019-01-09] MEDS ORDERED: OXYC-373 PO (17:21)
[2019-01-09 17:30] VITALS: BP 107/90
== END 2019-01-09 17:50 | disposition home or self-care (01) ==
LOC: ER 16:37
DX: M54.42 Lumbago with sciatica, left side (principal)
CPT/HCPCS: 96372; 96374; 99284; J1170; J1885

== ENCOUNTER 2019-01-25 13:22 | Emergency (ER) | payer MEDICAID ==
[2014-07-19 16:05] VITALS: Wt 107.5 kg
[~2019-01-25 13:22] MED LIST changes: +MELO-205 PO
--- NOTE | 2019-01-25 13:48 | ER Report ---
History and Physical Time Seen By MD: 13:47 Hx. of Stated Complaint: LEFT BUTTOCK LEG PAIN HPI/ROS CHIEF COMPLAINT: Left-sided back pain HISTORY OF PRESENT ILLNESS: Patient is a 38-year-old female with a known history of lumbar disc herniation status post fusion here with complaints of increasing back pain, radiation down to the foot, right-sided radiation to the buttock which is been ongoing for some time. Patient received lumbar back injections with steroids several weeks ago and has a follow-up tomorrow with orthopedics for reevaluation. Patient denies bowel or bladder incontinence, urinary retention, saddle anesthesia, fevers or night sweats. Denies recent trauma to the hips or back. REVIEW OF SYSTEMS: Constitutional: No fever, no chills. Eyes: No discharge. ENT: No sore throat. Cardiovascular: No chest pain, no palpitations. Respiratory: No cough, no shortness of breath. Gastrointestinal: No abdominal pain, no vomiting. Genitourinary: No hematuria. Musculoskeletal: + lumbar midline back pain and tenderness without stepoffs. Skin: No rashes. Neurological: No headache, NV intact in the distal lower extremities Allergies: Coded Allergies: No Known Drug Allergies (Verified , 01/25/19) Home Meds Active Scripts Prednisone (PREDNISONE) 50 Mg Tablet, 50 MG PO QDAY for 5 Days, #5 TAB Prov:GIRISH ECKERT DO 01/25/19 Tramadol Hcl (TRAMADOL HCL) 50 Mg Tablet, 50 MG PO Q6H PRN for PAIN, #12 TAB 0 Refills Prov:GIRISH ECKERT DO 01/25/19 Reported Medications Meloxicam (MELOXICAM) 7.5 Mg Tablet, 7.5 MG PO QDAY 01/09/19 Venlafaxine Hcl (EFFEXOR XR) 75 Mg Cap.er.24h, 75 MG PO QDAY 01/18/18 Lamotrigine (LAMICTAL) 100 Mg Tablet, 100 MG PO HS 03/26/17 Gabapentin (GABAPENTIN) 300 Mg Capsule, 800 MG PO QID for PAIN, CAPSULE 10/01/15 Atomoxetine Hcl (STRATTERA) 100 Mg Capsule, 100 MG PO QDAY, #10 CAP 10/01/15 Albuterol Sulfate (Albuterol Sulfate Hfa) 8.5 Gm Hfa.aer.ad, 8.5 GM IH PRN, 0 Refills 03/26/11 Discontinued Scripts Methocarbamol (ROBAXIN-750) 750 Mg Tablet, 750 MG PO Q4-6H PRN for MUSCLE SPASMS, #30 TAB Prov:ARSHAAD UPTON V DO 01/09/19 Oxycodone Hcl/Acetaminophen (OXYCODONE-ACETAMINOPHEN 5-325) 1 Each Tablet, 1 EACH PO Q4-6H PRN for PAIN, #21 TAB Prov:RASHAAD UPTON V DO 01/09/19 Hx Smoking: Yes (5-6 CIGS DAILY) Smoking Status: Current: Every Day Smoker Exposure to Second Hand Smoke?: No Hx Substance Use Disorder: Yes (METH, COCAINE QUIT DEC 30, 2016) Hx Alcohol Use: Yes (ETOH LAST DRINK OCT 2013) Constitutional Vital Sign - Last 24 Hours 01/25/19 01/25/19 01/25/19 01/25/19 13:32 13:32 13:52 14:00 Temp 98.5 Pulse 101 93 Resp 18 B/P (MAP) 115/82 115/82 (93) 99/68 (78) Pulse Ox 91 96 O2 Delivery Room Air Physical Exam General Appearance: The patient is alert, has no immediate need for airway protection and no signs of toxicity. Uncomfortable appearing Eyes: Pupils equal and round no pallor or injection. ENT, Mouth: Mucous membranes are moist. Respiratory: There are no retractions, lungs are clear to auscultation. Cardiovascular: Regular rate and rhythm. Gastrointestinal: Abdomen is soft and non tender, no masses, bowel sounds normal. Neurological: NV intact in distal lower extremities, patellar reflexes brisk b/l Skin: Warm and dry, no rashes. Musculoskeletal: Neck is supple non tender. Extremities are nontender, nonswollen and have full range of motion. DIFFERENTIAL DIAGNOSIS: After history and physical exam differential diagnosis was considered for disc herniation, arthritis, fracture, cauda equina Medical Decision Making ED Course/Re-evaluation ED Course Patient is a 38-year-old female here with complaints of chronic low back pain status post fusion now with radicular symptoms down the left leg extending to the foot. Patient had no red flag symptoms including bowel or bladder incontinence, urinary retention, saddle anesthesia, weakness of the extremities. Patient was able to ambulate without significant issues. She does have a follow- up tomorrow with orthopedics. Patient was started on a burst therapy for prednisone and given tramadol for temporary relief until she is able to follow- up with her orthopedist. Return precautions provided. Patient was advised to keep her current appointments as scheduled. Decision to Disposition Date: Jan 25, 2019 Decision to Disposition Time: 14:07 Depart Departure Latest Vital Signs Vital Signs Date Time Temp Pulse Resp B/P (MAP) Pulse Ox O2 Delivery O2 Flow Rate FiO2 01/25/19 14:00 99/68 (78) 01/25/19 13:52 93 96 01/25/19 13:32 98.5 18 Room Air Impression: Primary Impression: Chronic radicular pain of lower back Condition: Improved Disposition: HOME OR SELF-CARE Referrals: AIYANA RANGEL (PCP) New Scripts Prednisone (PREDNISONE) 50 Mg Tablet 50 MG PO QDAY for 5 Days, #5 TAB Prov: GIRISH ECKERT DO 01/25/19 Tramadol Hcl (TRAMADOL HCL) 50 Mg Tablet 50 MG PO Q6H PRN for PAIN, #12 TAB 0 Refills Prov: GIRISH ECKERT DO 01/25/19 Patient Instructions: Back Pain (ED) Additional Instructions: Please follow up with orthopedics tomorrow as scheduled. You may take 1 tablet of tramadol every 6-8 hours as needed for breakthrough back pain. Please take prednisone 50 mg daily for the next 5 days. Please return promptly if you develop fevers, bowel or bladder incontinence, nausea, vomiting, extremity weakness. GIRISH ECKERT DO Jan 25, 2019 13:47
[2019-01-25 14:00] VITALS: BP 99/68
[2019-01-25] MEDS ORDERED: TRAM-420 PO (14:10)
[2019-01-25] MEDS ORDERED: PRED50TA22 PO (14:10)
== END 2019-01-25 14:23 | disposition home or self-care (01) ==
LOC: ER 14:07
DX: M54.16 Radiculopathy, lumbar region (principal)
CPT/HCPCS: 99281